=== PATIENT | female | born 1960 | race Caucasian/White ===

== ENCOUNTER 2021-09-28 21:41 | Emergency (ER) | payer BC ==
[2021-09-28 22:38] LABS: #Eosinphils 0.2 10x3/uL (0.0-0.5); #Monocytes 0.7 10x3/uL (0.0-1.1); #Neutrophils 5.7 10x3/uL (1.5-8.4); %Basophils 0.4 % (0.0-2.0); %Eosinophils 1.9 % (0.0-6.0); %Lymphocytes 29.5 % (18.0-47.0); %Monocytes 7.2 % (0.0-10.0); %Neutrophils 60.5 % (40.0-75.0); Mean Corpuscular HGB CONC 32.7 g/dL (32.0-36.0); Mean Corpuscular Hemoglobin 30.6 pg (27.0-33.0); Mean Corpuscular Volume 93.7 fl (81.6-98.3); Mean Platelet Volume 11.3 fl (7.4-10.4); Platelet Count 141 10x3/uL (150-450); RBC Distribution Width 17.2 % (11.5-14.5); Red Blood Cell (RBC) Count 5.23 10x6/uL (3.90-5.03); White Blood Cell (WBC) Count 9.4 10x3/uL (3.5-10.5)
[2021-09-28 22:49] LABS: ALT (SGPT) 23 U/L (8-55); AST (SGOT) 21 U/L (5-34); Albumin 3.9 g/dL (3.5-5.0); Alkaline Phosphatase 92 U/L (40-110); Anion Gap 14 mmol/L (10-20); BUN (Urea Nitrogen) 14 mg/dL (9.8-20.1); Bilirubin, Total 1.1 mg/dL (0.2-1.2); Calc. Creatinine Clearance 0 mL/min (70-130); Calcium 8.9 mg/dL (7.8-10.44); Carbon Dioxide 29 mmol/L (22-29); Chloride 101 mmol/L (98-107); Globulin 2.7 g/dL (2.4-3.5); Glucose 115 mg/dL (70-105); Potassium 3.8 mmol/L (3.5-5.1); Protein, Total 6.6 g/dL (6.0-8.3); Sodium 140 mmol/L (136-145)
== END 2021-09-28 23:46 | disposition home or self-care (01) ==
LOC: CSHERS 21:41
DX: R55 Syncope and collapse (principal); J44.9 Chronic obstructive pulmonary disease, unspecified; I50.9 Heart failure, unspecified; I25.2 Old myocardial infarction; I25.10 Atherosclerotic heart disease of native coronary artery without angina pectoris; E11.9 Type 2 diabetes mellitus without complications; E78.5 Hyperlipidemia, unspecified; E66.9 Obesity, unspecified; F17.210 Nicotine dependence, cigarettes, uncomplicated
CPT/HCPCS: 71045; 80053; 83880; 84484; 85025; 85652; 86140; 93005

== ENCOUNTER 2022-01-11 22:50 | Emergency (ER) | payer BC ==
[2022-01-11 23:56] LABS: #Basophils 0.1 10x3/uL (0.0-0.2); #Eosinphils 0.2 10x3/uL (0.0-0.5); #Monocytes 0.8 10x3/uL (0.0-1.1); %Basophils 0.7 % (0.0-2.0); %Eosinophils 1.7 % (0.0-6.0); %Neutrophils 66.2 % (40.0-75.0); Hemoglobin 15.8 g/dL (12.0-15.5); Mean Corpuscular HGB CONC 33.2 g/dL (32.0-36.0); Mean Corpuscular Hemoglobin 30.5 pg (27.0-33.0); Mean Corpuscular Volume 91.9 fl (81.6-98.3); Mean Platelet Volume 11.8 fl (7.4-10.4); Platelet Count 161 10x3/uL (150-450); RBC Distribution Width 15.3 % (11.5-14.5); Red Blood Cell (RBC) Count 5.18 10x6/uL (3.90-5.03); White Blood Cell (WBC) Count 10.5 10x3/uL (3.5-10.5)
[2022-01-12 01:35] LABS: ALT (SGPT) 29 U/L (8-55); AST (SGOT) 22 U/L (5-34); Albumin 3.7 g/dL (3.5-5.0); Alkaline Phosphatase 91 U/L (40-110); Anion Gap 14 mmol/L (10-20); BUN (Urea Nitrogen) 23 mg/dL (9.8-20.1); Bilirubin, Total 0.5 mg/dL (0.2-1.2); Calc. Creatinine Clearance 0 mL/min (70-130); Carbon Dioxide 27 mmol/L (22-29); Chloride 101 mmol/L (98-107); Globulin 2.5 g/dL (2.4-3.5); Glucose 159 mg/dL (70-105); Potassium 4.6 mmol/L (3.5-5.1); Protein, Total 6.2 g/dL (6.0-8.3); Sodium 137 mmol/L (136-145)
[2022-01-12 02:42] LABS: Bilirubin Neg (Negative); Blood, Urine Negative (Negative); Clarity Slightly Cloudy (Clear); Glucose, Urine (Dipstick) >=1000 mg/dL (Negative); Ketone, Urine Negative (Negative); Leukocyte Negative (Negative); Nitrite Negative (Negative); Protein, Urine (Dipstick) Negative (Neg-Trace); Specific Gravity, Urine 1.015 (1.002-1.036)
== END 2022-01-12 03:30 | disposition home or self-care (01) ==
LOC: CSHERS 22:50
DX: R53.1 Weakness (principal); I25.2 Old myocardial infarction; I25.10 Atherosclerotic heart disease of native coronary artery without angina pectoris; E11.9 Type 2 diabetes mellitus without complications; F17.210 Nicotine dependence, cigarettes, uncomplicated
CPT/HCPCS: 70450; 80053; 81003; 84484; 85025; 93005

== ENCOUNTER 2022-02-17 22:07 | Inpatient (IN) | payer BC ==
[2022-02-17] MEDS ORDERED: Naloxone HCl 0.4 mg/ml Vial ONE (22:36)
[2022-02-17 23:19] LABS: Mean Corpuscular HGB CONC 32.4 g/dL (32.0-36.0); Mean Corpuscular Hemoglobin 29.6 pg (27.0-33.0); Mean Corpuscular Volume 91.5 fl (81.6-98.3); Mean Platelet Volume 11.4 fl (7.4-10.4); Platelet Count 152 10x3/uL (150-450); RBC Distribution Width 15.9 % (11.5-14.5); Red Blood Cell (RBC) Count 5.74 10x6/uL (3.90-5.03); White Blood Cell (WBC) Count 12.8 10x3/uL (3.5-10.5)
[2022-02-17 23:33] LABS: ALT (SGPT) 29 U/L (8-55); AST (SGOT) 21 U/L (5-34); Acetaminophen Less than 10.0 mcg/mL (10.0-30.0); Alcohol Less than 10 mg/dL (Less than 10); Alkaline Phosphatase 104 U/L (40-110); Anion Gap 14 mmol/L (10-20); BUN (Urea Nitrogen) 17 mg/dL (9.8-20.1); Bilirubin, Total 0.8 mg/dL (0.2-1.2); Calc. Creatinine Clearance 0 mL/min (70-130); Calcium 9.8 mg/dL (7.8-10.44); Carbon Dioxide 28 mmol/L (22-29); Chloride 104 mmol/L (98-107); Globulin 2.8 g/dL (2.4-3.5); Glucose 158 mg/dL (70-105); Potassium 5.5 mmol/L (3.5-5.1); Protein, Total 6.8 g/dL (6.0-8.3); Salicylate Less than 8.0 mg/dL (15.0-30.0); Sodium 140 mmol/L (136-145)
[2022-02-17 23:34] LABS: MDiff Complete? YES
[2022-02-17 23:37] LABS: Band 12 % (5-11); Lymphocytes 8 % (21-51); Monocytes 4 % (0-10); Neutrophil 75 % (42-75); Reactive Lymphocytes 1 % (0-10)
[2022-02-17 23:38] LABS: Platelet Morphology Comment Appears Adequate; RBC Morphology Normal; Vacuoles SLIGHT
[2022-02-17] MEDS ORDERED: Ondansetron PF 4 MG/2 ML Vial ONE (23:39)
[2022-02-18 00:47] LABS: SARS-CoV-2 NAA Rapid Test Not Detected (NotDetected)
[2022-02-18 01:28] LABS: Bilirubin Neg (Negative); Blood, Urine 25 (Negative); Clarity Clear (Clear); Glucose, Urine (Dipstick) >=1000 mg/dL (Negative); Ketone, Urine Negative (Negative); Leukocyte 500 (Negative); Nitrite Negative (Negative); Protein, Urine (Dipstick) 15 mg/dl (Neg-Trace); Urobilinogen Normal mg/dL (Less than 2)
[2022-02-18 01:36] LABS: Amphetamine Not Detected (NotDetected); Barbiturates Screen Not Detected (NotDetected); Benzodiazepine Screen Not Detected (NotDetected); Cocaine Metabolite Screen Not Detected (NotDetected); Methadone Not Detected (NotDetected); Methamphetamine Not Detected (NotDetected); Opiate Screen Detected (NotDetected); Oxycodone Screen Not Detected (NotDetected); Phencyclidine (PCP) Not Detected (NotDetected); THC/Cannabinoid Screen Not Detected (NotDetected); Tricyclic Screen Detected (NotDetected)
[2022-02-18 01:37] LABS: Bacteria/HPF 4+ HPF (None Seen); RBC/HPF 0-3 HPF (0-3); Squamous Epithelial None Seen HPF (0-3); WBC/HPF 21-50 HPF (0-3)
[2022-02-18] MEDS ORDERED: cefTRIAXone\\ROCEPHIN 2 GM VIAL ONE (01:50)
[2022-02-18] MEDS ORDERED: Ventolin HFA Inhaler 60 PUFF INHALER INH PRN (02:53)
[2022-02-18] MEDS ORDERED: HumaLOG 300 UNITS/3 ML VIAL SC PRN (02:54)
[2022-02-18] MEDS ORDERED: Dextrose 5% in Water 1,000 ML IV PRN (02:54)
[2022-02-18] MEDS ORDERED: Lorazepam 2 MG/ML VIAL SLOW IVP PRN (02:54)
[2022-02-18] MEDS ORDERED: Dextrose 50% Abboject 50 ML SYRINGE SLOW IVP PRN (02:54)
[2022-02-18] MEDS ORDERED: hydrALAZINE 20 MG/ML VIAL SLOW IVP PRN (02:57)
[2022-02-18] MEDS ORDERED: Nicotine 14 MG PATCH TD SCH (03:00)
[2022-02-18 03:39] VITALS: BMI 44.2
[2022-02-18] MEDS: Sodium Chloride 0.9% 1,000 ML IV SCH ×2 (05:00→16:16)
[2022-02-18 05:35] LABS: #Monocytes 0.8 10x3/uL (0.0-1.1); #Neutrophils 10.8 10x3/uL (1.5-8.4); %Basophils 0.2 % (0.0-2.0); %Eosinophils 0.1 % (0.0-6.0); %Lymphocytes 9.3 % (18.0-47.0); %Monocytes 5.9 % (0.0-10.0); %Neutrophils 84.1 % (40.0-75.0); Hemoglobin 15.5 g/dL (12.0-15.5); Mean Corpuscular HGB CONC 32.8 g/dL (32.0-36.0); Mean Corpuscular Hemoglobin 29.6 pg (27.0-33.0); Mean Corpuscular Volume 90.2 fl (81.6-98.3); Mean Platelet Volume 11.6 fl (7.4-10.4); Platelet Count 142 10x3/uL (150-450); RBC Distribution Width 15.4 % (11.5-14.5); Red Blood Cell (RBC) Count 5.23 10x6/uL (3.90-5.03); White Blood Cell (WBC) Count 12.9 10x3/uL (3.5-10.5)
[2022-02-18 05:55] LABS: ALT (SGPT) 20 U/L (8-55); AST (SGOT) 16 U/L (5-34); Albumin 3.5 g/dL (3.5-5.0); Alkaline Phosphatase 90 U/L (40-110); Anion Gap 14 mmol/L (10-20); BUN (Urea Nitrogen) 17 mg/dL (9.8-20.1); Bilirubin, Total 0.5 mg/dL (0.2-1.2); Calc. Creatinine Clearance 87 mL/min (70-130); Calcium 8.8 mg/dL (7.8-10.44); Carbon Dioxide 27 mmol/L (22-29); Chloride 106 mmol/L (98-107); Globulin 2.4 g/dL (2.4-3.5); Glucose 127 mg/dL (70-105); Magnesium 2.9 mg/dL (1.6-2.6); Protein, Total 5.9 g/dL (6.0-8.3); Sodium 142 mmol/L (136-145)
[2022-02-18] MEDS ORDERED: Famotidine/PF 20 mg/2ml Vial SLOW IVP SCH (09:00)
[2022-02-18] MEDS: Heparin 5,000 UNITS/ML VIAL SC SCH ×3 (09:39→21:02)
[2022-02-18 13:19] LABS: Potassium, Urine 76.3 mmol/L; Sodium, Urine Less than 20 mmol/L (Not Available)
[2022-02-18] MEDS: Acetaminophen 325 MG TAB PO PRN (21:03)
[2022-02-18] MEDS: Atorvastatin Calcium 40 MG TAB PO SCH (21:04)
[2022-02-18] MEDS: Famotidine 20 MG TAB PO SCH (21:42)
[2022-02-19] MEDS: Sodium Chloride 0.9% 1,000 ML IV SCH ×2 (00:33→09:29)
[2022-02-19] MEDS: cefTRIAXone\\ROCEPHIN 1 GM in Sodium Chloride 0.9% 100 ML IVPB SCH (01:12)
[2022-02-19 05:37] LABS: #Eosinphils 0.1 10x3/uL (0.0-0.5); #Monocytes 0.9 10x3/uL (0.0-1.1); #Neutrophils 7.2 10x3/uL (1.5-8.4); %Basophils 0.3 % (0.0-2.0); %Eosinophils 0.9 % (0.0-6.0); %Monocytes 8.8 % (0.0-10.0); %Neutrophils 70.6 % (40.0-75.0); Hemoglobin 13.9 g/dL (12.0-15.5); Mean Corpuscular HGB CONC 32.5 g/dL (32.0-36.0); Mean Corpuscular Hemoglobin 29.8 pg (27.0-33.0); Mean Corpuscular Volume 91.6 fl (81.6-98.3); Mean Platelet Volume 11.7 fl (7.4-10.4); Platelet Count 122 10x3/uL (150-450); RBC Distribution Width 15.7 % (11.5-14.5); Red Blood Cell (RBC) Count 4.67 10x6/uL (3.90-5.03); White Blood Cell (WBC) Count 10.2 10x3/uL (3.5-10.5)
[2022-02-19 05:54] LABS: Anion Gap 12 mmol/L (10-20); BUN (Urea Nitrogen) 14 mg/dL (9.8-20.1); Calc. Creatinine Clearance 129 mL/min (70-130); Calcium 8.6 mg/dL (7.8-10.44); Carbon Dioxide 25 mmol/L (22-29); Chloride 109 mmol/L (98-107); Glucose 87 mg/dL (70-105); Potassium 4.1 mmol/L (3.5-5.1); Sodium 142 mmol/L (136-145)
[2022-02-19 06:03] LABS: Free T4 (Free Thyroxine) 0.91 ng/dL (0.70-1.48)
[2022-02-19] MEDS: Famotidine 20 MG TAB PO SCH ×2 (10:10→21:08)
[2022-02-19] MEDS: Nicotine 14 MG PATCH TD SCH (10:11)
[2022-02-19] MEDS: Acetaminophen 325 MG TAB PO PRN ×2 (10:24→21:06)
[2022-02-19] MEDS: Heparin 5,000 UNITS/ML VIAL SC SCH ×3 (10:24→21:09)
[2022-02-19] MEDS: HYDROcodone/Acetaminophen 5/325 mg Tablet PO PRN (16:21)
[2022-02-19] MEDS: Atorvastatin Calcium 40 MG TAB PO SCH (21:07)
[2022-02-20] MEDS: cefTRIAXone\\ROCEPHIN 1 GM in Sodium Chloride 0.9% 100 ML IVPB SCH (01:14)
[2022-02-20] MEDS: Nicotine 14 MG PATCH TD SCH (08:43)
[2022-02-20] MEDS: Famotidine 20 MG TAB PO SCH ×2 (08:43→19:44)
[2022-02-20] MEDS: Heparin 5,000 UNITS/ML VIAL SC SCH ×3 (08:43→21:13)
[2022-02-20] MEDS: Acetaminophen 325 MG TAB PO PRN ×2 (08:43→13:56)
[2022-02-20] MEDS ORDERED: Loratadine 10 MG TAB PO PRN (11:35)
[2022-02-20] MEDS: HYDROcodone/Acetaminophen 5/325 mg Tablet PO PRN ×2 (15:21→19:48)
[2022-02-20] MEDS: Torsemide 20 MG TAB PO SCH (19:44)
[2022-02-20] MEDS: risperiDONE 1 MG TAB PO SCH (19:46)
[2022-02-20] MEDS: Atorvastatin Calcium 40 MG TAB PO SCH (19:46)
[2022-02-21] MEDS: Acetaminophen 325 MG TAB PO PRN ×2 (00:18→22:51)
[2022-02-21] MEDS: Lorazepam 0.5 MG TAB PO PRN (00:26)
[2022-02-21] MEDS: HYDROcodone/Acetaminophen 5/325 mg Tablet PO PRN ×4 (02:08→21:43)
[2022-02-21] MEDS: cefTRIAXone\\ROCEPHIN 1 GM in Sodium Chloride 0.9% 100 ML IVPB SCH (02:10)
[2022-02-21] MEDS: Nicotine 14 MG PATCH TD SCH (09:11)
[2022-02-21] MEDS: Heparin 5,000 UNITS/ML VIAL SC SCH ×3 (09:11→22:15)
[2022-02-21] MEDS: PARoxetine 20 MG TAB PO SCH (09:12)
[2022-02-21] MEDS: risperiDONE 1 MG TAB PO SCH ×2 (09:12→21:43)
[2022-02-21] MEDS: Torsemide 20 MG TAB PO SCH ×2 (09:12→21:42)
[2022-02-21] MEDS: Famotidine 20 MG TAB PO SCH ×2 (09:14→21:43)
[2022-02-21] MEDS: Amlodipine 10 MG TAB PO SCH (11:01)
[2022-02-21] MEDS: Atorvastatin Calcium 40 MG TAB PO SCH (21:43)
[2022-02-22] MEDS: cefTRIAXone\\ROCEPHIN 1 GM in Sodium Chloride 0.9% 100 ML IVPB SCH (01:01)
[2022-02-22] MEDS: Lorazepam 0.5 MG TAB PO PRN (01:01)
[2022-02-22] MEDS: HYDROcodone/Acetaminophen 5/325 mg Tablet PO PRN ×2 (03:19→12:21)
[2022-02-22] MEDS: risperiDONE 1 MG TAB PO SCH (08:37)
[2022-02-22] MEDS: Nicotine 14 MG PATCH TD SCH (08:37)
[2022-02-22] MEDS: Amlodipine 10 MG TAB PO SCH (08:37)
[2022-02-22] MEDS: PARoxetine 20 MG TAB PO SCH (08:37)
[2022-02-22] MEDS: Heparin 5,000 UNITS/ML VIAL SC SCH ×2 (08:37→15:30)
[2022-02-22] MEDS: Famotidine 20 MG TAB PO SCH (08:37)
[2022-02-22] MEDS: Torsemide 20 MG TAB PO SCH (08:38)
[2022-02-22 12:39] VITALS: BP 153/66; TEMP 97.3
== END 2022-02-22 16:20 | disposition home or self-care (01) | DRG 71 ==
LOC: CSHERS 22:07 → CSHTELE 02-18 02:39
PROVIDERS: ADMIT Internal Medicine; ATTEND Internal Medicine
DX: G93.41 Metabolic encephalopathy (principal); N39.0 Urinary tract infection, site not specified; I13.0 Hypertensive heart and chronic kidney disease with heart failure and stage 1 through stage 4 chronic kidney disease, or unspecified chronic kidney disease; N17.9 Acute kidney failure, unspecified; J44.1 Chronic obstructive pulmonary disease with (acute) exacerbation; Z68.41 Body mass index [BMI] 40.0-44.9, adult; I50.9 Heart failure, unspecified; N18.2 Chronic kidney disease, stage 2 (mild); E11.22 Type 2 diabetes mellitus with diabetic chronic kidney disease; E78.5 Hyperlipidemia, unspecified; M54.9 Dorsalgia, unspecified; D75.1 Secondary polycythemia; R25.1 Tremor, unspecified; T40.2X5A Adverse effect of other opioids, initial encounter; E87.5 Hyperkalemia; F17.210 Nicotine dependence, cigarettes, uncomplicated; D72.829 Elevated white blood cell count, unspecified; G89.4 Chronic pain syndrome; E78.1 Pure hyperglyceridemia; I25.10 Atherosclerotic heart disease of native coronary artery without angina pectoris; E66.9 Obesity, unspecified; F31.9 Bipolar disorder, unspecified; Z20.822 Contact with and (suspected) exposure to COVID-19; Z90.49 Acquired absence of other specified parts of digestive tract; Z90.710 Acquired absence of both cervix and uterus; I25.2 Old myocardial infarction; Z98.890 Other specified postprocedural states; Z85.828 Personal history of other malignant neoplasm of skin; Z90.722 Acquired absence of ovaries, bilateral; Z90.12 Acquired absence of left breast and nipple; Z88.6 Allergy status to analgesic agent; Z88.1 Allergy status to other antibiotic agents; Z88.5 Allergy status to narcotic agent; Z88.8 Allergy status to other drugs, medicaments and biological substances; Z88.2 Allergy status to sulfonamides; Z91.09 Other allergy status, other than to drugs and biological substances; Z95.5 Presence of coronary angioplasty implant and graft; Z79.899 Other long term (current) drug therapy; Z79.01 Long term (current) use of anticoagulants; Z79.84 Long term (current) use of oral hypoglycemic drugs
CPT/HCPCS: 36415; 36416; 51702; 70450; 70551; 71045; 80048; 80053; 80306; 80307; 81003; 81015; 83605; 83735; 84133; 84300; 84439; 84443; 84481; 84484; 85025; 87077; 87086; 87186; 93005; 94640; 94760; 95819; 95957; 96365; 96375; J0696; J1644; J2310; J2405; J3490; J7050; J7620; U0002

== ENCOUNTER 2022-03-29 20:02 | Inpatient (IN) | payer OTHER, BC ==
[2022-03-29] MEDS ORDERED: Naloxone HCl 0.4 mg/ml Vial ONE ×2 (20:41→22:00)
[2022-03-29 21:09] LABS: #Basophils 0.1 10x3/uL (0.0-0.2); #Eosinphils 0.2 10x3/uL (0.0-0.5); #Monocytes 0.9 10x3/uL (0.0-1.1); #Neutrophils 6.7 10x3/uL (1.5-8.4); %Basophils 0.5 % (0.0-2.0); %Eosinophils 1.6 % (0.0-6.0); %Lymphocytes 22.9 % (18.0-47.0); %Neutrophils 65.3 % (40.0-75.0); Hemoglobin 14.6 g/dL (12.0-15.5); Mean Corpuscular HGB CONC 33.3 g/dL (32.0-36.0); Mean Corpuscular Hemoglobin 30.3 pg (27.0-33.0); Mean Corpuscular Volume 91.1 fl (81.6-98.3); Mean Platelet Volume 11.4 fl (7.4-10.4); Red Blood Cell (RBC) Count 4.82 10x6/uL (3.90-5.03); White Blood Cell (WBC) Count 10.3 10x3/uL (3.5-10.5)
[2022-03-29 21:10] LABS: Platelet Count 135 10x3/uL (150-450)
[2022-03-29 21:23] LABS: Acetaminophen Less than 10.0 mcg/mL (10.0-30.0); Alcohol Less than 10 mg/dL (Less than 10); Salicylate Less than 8.0 mg/dL (15.0-30.0)
[2022-03-29 21:25] LABS: ALT (SGPT) 25 U/L (8-55); AST (SGOT) 19 U/L (5-34); Albumin 3.6 g/dL (3.5-5.0); Alkaline Phosphatase 88 U/L (40-110); Anion Gap 10 mmol/L (10-20); BUN (Urea Nitrogen) 25 mg/dL (9.8-20.1); Bilirubin, Total 1.1 mg/dL (0.2-1.2); CK (CPK) 45 U/L (29-168); Calc. Creatinine Clearance 0 mL/min (70-130); Calcium 8.7 mg/dL (7.8-10.44); Carbon Dioxide 26 mmol/L (22-29); Chloride 104 mmol/L (98-107); Estimated GFR 30; Globulin 2.6 g/dL (2.4-3.5); Glucose 124 mg/dL (70-105); Magnesium 2.2 mg/dL (1.6-2.6); Potassium 3.7 mmol/L (3.5-5.1); Protein, Total 6.2 g/dL (6.0-8.3); Sodium 136 mmol/L (136-145)
[2022-03-29 21:40] LABS: Bilirubin Neg (Negative); Blood, Urine Negative (Negative); Clarity Clear (Clear); Glucose, Urine (Dipstick) >=1000 mg/dL (Negative); Ketone, Urine Negative (Negative); Leukocyte Negative (Negative); Nitrite Negative (Negative); Protein, Urine (Dipstick) Negative (Neg-Trace); Urobilinogen Normal mg/dL (Less than 2)
[2022-03-29 22:01] LABS: Amphetamine Not Detected (NotDetected); Barbiturates Screen Not Detected (NotDetected); Benzodiazepine Screen Not Detected (NotDetected); Cocaine Metabolite Screen Not Detected (NotDetected); Methadone Not Detected (NotDetected); Methamphetamine Not Detected (NotDetected); Opiate Screen Detected (NotDetected); Oxycodone Screen Not Detected (NotDetected); Phencyclidine (PCP) Not Detected (NotDetected); THC/Cannabinoid Screen Not Detected (NotDetected); Tricyclic Screen Detected (NotDetected)
[2022-03-30] MEDS ORDERED: Ondansetron PF 4 MG/2 ML Vial IVP PRN (00:56)
[2022-03-30] MEDS ORDERED: Calcium Carbonate 500 MG ChewTAB PO PRN (00:56)
[2022-03-30] MEDS ORDERED: Acetaminophen 325 MG TAB PO PRN (00:56)
[2022-03-30] MEDS ORDERED: Dextrose 50% Abboject 50 ML SYRINGE SLOW IVP PRN (00:56)
[2022-03-30] MEDS ORDERED: Dextrose 5% in Water 1,000 ML IV PRN (00:56)
[2022-03-30] MEDS ORDERED: Senokot S 8.6-50 MG TAB PO PRN (00:56)
[2022-03-30 01:02] LABS: Actual Bicarbonate (HCO3v) 24 mEq/L (22-28); Base Excess -4.5 mEq/L (-2.0 to +3.0); Calcium, Ionized (venous) 1.07 mmol/L (1.16-1.32); Chloride (VBG) 107 mmol/L (98-106); Critical Notified By: CP.PH; Hemoglobin (Hb) 15.6 g/dL (11.7-16.0); Potassium (VBG) 4.12 mmol/L (3.70-5.30); Puncture Site Other Site; RapidComm Collect By LAB.YY; Sodium 139.3 mmol/L (133-146); pH (venous) 7.23 (7.32-7.43)
[2022-03-30] MEDS ORDERED: Lactated Ringer's 500 ML IV SCH (01:15)
[2022-03-30 02:15] VITALS: BMI 43.6
[2022-03-30 03:21] LABS: SARS-CoV-2 NAA Rapid Test Not Detected (NotDetected)
[2022-03-30 04:52] LABS: Anion Gap 11 mmol/L (10-20); BUN (Urea Nitrogen) 23 mg/dL (9.8-20.1); Calc. Creatinine Clearance 66 mL/min (70-130); Calcium 8.7 mg/dL (7.8-10.44); Carbon Dioxide 24 mmol/L (22-29); Chloride 108 mmol/L (98-107); Estimated GFR 37; Glucose 136 mg/dL (70-105); Potassium 4.2 mmol/L (3.5-5.1); Sodium 139 mmol/L (136-145)
[2022-03-30] MEDS: Mometasone/Formoterol 200/5 60 PUFF INH SCH ×2 (09:00→19:00)
[2022-03-30] MEDS: Cholecalciferol 1,000 UNITS (25 MCG) TAB PO SCH (09:15)
[2022-03-30] MEDS: Clopidogrel Bisulfate 75 MG TAB PO SCH (09:15)
[2022-03-30] MEDS: Famotidine 20 MG TAB PO SCH (09:15)
[2022-03-30] MEDS: Icosapent Ethyl 1 GM CAPSULE PO SCH ×2 (09:16→18:24)
[2022-03-30] MEDS: Empagliflozin 25 MG TAB PO SCH (09:16)
[2022-03-30] MEDS: Enoxaparin Sodium 40 MG/0.4 ML SYRINGE SC SCH (09:16)
[2022-03-30] MEDS: Insulin Regular 300 UNITS/3 ML VIAL SC PRN (13:32)
[2022-03-31] MEDS: Mometasone/Formoterol 200/5 60 PUFF INH SCH ×2 (07:00→19:35)
[2022-03-31] MEDS: Famotidine 20 MG TAB PO SCH (09:09)
[2022-03-31] MEDS: Enoxaparin Sodium 40 MG/0.4 ML SYRINGE SC SCH (09:09)
[2022-03-31] MEDS: Cholecalciferol 1,000 UNITS (25 MCG) TAB PO SCH (09:09)
[2022-03-31] MEDS: Empagliflozin 25 MG TAB PO SCH (09:09)
[2022-03-31] MEDS: Clopidogrel Bisulfate 75 MG TAB PO SCH (09:10)
[2022-03-31] MEDS: Icosapent Ethyl 1 GM CAPSULE PO SCH ×2 (09:10→17:28)
[2022-03-31 14:35] LABS: Anion Gap 13 mmol/L (10-20); BUN (Urea Nitrogen) 13 mg/dL (9.8-20.1); Calc. Creatinine Clearance 99 mL/min (70-130); Calcium 9.1 mg/dL (7.8-10.44); Carbon Dioxide 20 mmol/L (22-29); Chloride 110 mmol/L (98-107); Estimated GFR 59; Glucose 214 mg/dL (70-105); Potassium 3.2 mmol/L (3.5-5.1); Sodium 140 mmol/L (136-145)
[2022-03-31] MEDS ORDERED: Potassium Chloride 20 MEQ TAB PO SCH (15:30)
[2022-03-31] MEDS: Pregabalin 25 MG CAP PO SCH ×2 (15:42→21:54)
[2022-03-31] MEDS: Insulin Regular 300 UNITS/3 ML VIAL SC PRN (17:27)
[2022-03-31] MEDS ORDERED: methylPREDNISolone Sod Succ 40 MG VIAL IVP SCH (18:00)
[2022-03-31] MEDS ORDERED: Loratadine 10 MG TAB PO SCH (18:00)
[2022-03-31] MEDS ORDERED: Amitriptyline HCl 25 MG TAB PO SCH (21:00)
[2022-03-31] MEDS: Torsemide 20 MG TAB PO SCH (21:54)
[2022-03-31] MEDS: Metoprolol Tartrate 25 MG TAB PO SCH (21:55)
[2022-03-31] MEDS: Potassium Chloride 20 MEQ TAB PO SCH (21:55)
[2022-04-01 05:14] LABS: Anion Gap 14 mmol/L (10-20); BUN (Urea Nitrogen) 11 mg/dL (9.8-20.1); Calc. Creatinine Clearance 108 mL/min (70-130); Calcium 8.9 mg/dL (7.8-10.44); Carbon Dioxide 22 mmol/L (22-29); Chloride 111 mmol/L (98-107); Estimated GFR 66; Glucose 124 mg/dL (70-105); Potassium 3.5 mmol/L (3.5-5.1); Sodium 143 mmol/L (136-145)
[2022-04-01] MEDS: Mometasone/Formoterol 200/5 60 PUFF INH SCH (07:17)
[2022-04-01] MEDS: Enoxaparin Sodium 40 MG/0.4 ML SYRINGE SC SCH (08:33)
[2022-04-01] MEDS: Cholecalciferol 1,000 UNITS (25 MCG) TAB PO SCH (08:34)
[2022-04-01] MEDS: Clopidogrel Bisulfate 75 MG TAB PO SCH (08:34)
[2022-04-01] MEDS: Potassium Chloride 20 MEQ TAB PO SCH (08:34)
[2022-04-01] MEDS: Pregabalin 25 MG CAP PO SCH (08:34)
[2022-04-01] MEDS: Torsemide 20 MG TAB PO SCH (08:35)
[2022-04-01] MEDS: Famotidine 20 MG TAB PO SCH (08:35)
[2022-04-01] MEDS: Metoprolol Tartrate 25 MG TAB PO SCH (08:35)
[2022-04-01] MEDS ORDERED: PARoxetine 20 MG TAB PO SCH (09:00)
[2022-04-01] MEDS ORDERED: Lisinopril 2.5 MG TAB PO SCH (09:00)
[2022-04-01] MEDS: Icosapent Ethyl 1 GM CAPSULE PO SCH (10:12)
[2022-04-01] MEDS: Empagliflozin 25 MG TAB PO SCH (10:12)
[2022-04-01 12:22] VITALS: BP 152/72; TEMP 97
[2022-04-02 11:43] LABS: Campy jejuni + coli by PCR Negative (Negative); STEC Shiga Toxin 1+2 Negative (Negative); Salmonella spp. by PCR Negative (Negative); Shigella spp + EIEC by PCR Negative (Negative)
== END 2022-04-01 13:10 | disposition home or self-care (01) | DRG 917 ==
LOC: CSHERS 20:02 → CSHTELE 03-30 01:48 → OBSVTOIN 03-30 17:31
PROVIDERS: ADMIT Student in an Organized Health Care Education/Training Program; ATTEND Internal Medicine
PROC: 5A09357 Assistance with Respiratory Ventilation, Less than 24 Consecutive Hours, Continuous Positive Airway Pressure (ICD-10-PCS; principal; 2022-03-30)
DX: T40.2X1A Poisoning by other opioids, accidental (unintentional), initial encounter (principal); G92.8 Other toxic encephalopathy; N17.9 Acute kidney failure, unspecified; I50.32 Chronic diastolic (congestive) heart failure; K52.1 Toxic gastroenteritis and colitis; Z68.41 Body mass index [BMI] 40.0-44.9, adult; I13.0 Hypertensive heart and chronic kidney disease with heart failure and stage 1 through stage 4 chronic kidney disease, or unspecified chronic kidney disease; E66.01 Morbid (severe) obesity due to excess calories; E78.5 Hyperlipidemia, unspecified; I25.10 Atherosclerotic heart disease of native coronary artery without angina pectoris; J44.9 Chronic obstructive pulmonary disease, unspecified; G47.33 Obstructive sleep apnea (adult) (pediatric); F31.9 Bipolar disorder, unspecified; E11.22 Type 2 diabetes mellitus with diabetic chronic kidney disease; N18.2 Chronic kidney disease, stage 2 (mild); G89.29 Other chronic pain; F17.210 Nicotine dependence, cigarettes, uncomplicated; E11.40 Type 2 diabetes mellitus with diabetic neuropathy, unspecified; Z20.822 Contact with and (suspected) exposure to COVID-19; I95.9 Hypotension, unspecified; Z90.49 Acquired absence of other specified parts of digestive tract; Z90.710 Acquired absence of both cervix and uterus; Z79.899 Other long term (current) drug therapy; Z88.8 Allergy status to other drugs, medicaments and biological substances; Z88.1 Allergy status to other antibiotic agents; Z88.2 Allergy status to sulfonamides; Z85.3 Personal history of malignant neoplasm of breast; Y92.89 Other specified places as the place of occurrence of the external cause; Z88.5 Allergy status to narcotic agent; Z79.51 Long term (current) use of inhaled steroids; Z79.4 Long term (current) use of insulin; Z98.890 Other specified postprocedural states
CPT/HCPCS: 36415; 36416; 70450; 71045; 80048; 80053; 80306; 80307; 81003; 82140; 82550; 82805; 83630; 83735; 84443; 84484; 85025; 87505; 93005; 94660; 94760; 96372; G0378; J1650; J1815; J2310; J7120; U0002

== ENCOUNTER 2023-05-26 15:58 | Emergency (ER) | payer BC ==
[2023-05-26 16:54] LABS: #Eosinphils 0.2 10x3/uL (0.0-0.5); #Monocytes 0.7 10x3/uL (0.0-1.1); #Neutrophils 7.9 10x3/uL (1.5-8.4); %Basophils 0.3 % (0.0-2.0); %Eosinophils 1.9 % (0.0-6.0); %Lymphocytes 13.1 % (18.0-47.0); %Monocytes 6.6 % (0.0-10.0); %Neutrophils 76.7 % (40.0-75.0); Hematocrit 28.1 % (34.9-44.5); Hemoglobin 9.3 g/dL (12.0-15.5); Mean Corpuscular HGB CONC 33.1 g/dL (32.0-36.0); Mean Corpuscular Hemoglobin 34.6 pg (27.0-33.0); Mean Corpuscular Volume 104.5 fl (81.6-98.3); Mean Platelet Volume 12.3 fl (7.4-10.4); Platelet Count 63 10x3/uL (150-450); RBC Distribution Width 25.8 % (11.5-14.5); Red Blood Cell (RBC) Count 2.69 10x6/uL (3.90-5.03); White Blood Cell (WBC) Count 10.2 10x3/uL (3.5-10.5)
[2023-05-26 17:11] LABS: Bilirubin Neg (Negative); Blood, Urine Negative (Negative); Clarity Clear (Clear); Glucose, Urine (Dipstick) >=1000 mg/dL (Negative); Ketone, Urine Negative (Negative); Leukocyte Negative (Negative); Nitrite Negative (Negative); Protein, Urine (Dipstick) Negative (Neg-Trace); Urobilinogen Normal mg/dL (Less than 2)
[2023-05-26 17:11] LABS: ALT (SGPT) 19 U/L (8-55); AST (SGOT) 16 U/L (5-34); Albumin 3.9 g/dL (3.5-5.0); Alkaline Phosphatase 165 U/L (40-110); Anion Gap 15 mmol/L (10-20); BUN (Urea Nitrogen) 26 mg/dL (9.8-20.1); Bilirubin, Total 0.5 mg/dL (0.2-1.2); Calc. Creatinine Clearance 0 mL/min (70-130); Calcium 8.3 mg/dL (7.8-10.44); Carbon Dioxide 26 mmol/L (22-29); Chloride 101 mmol/L (98-107); Estimated GFR 52; Globulin 2.8 g/dL (2.4-3.5); Glucose 255 mg/dL (70-105); Lipase 38 U/L (8-78); Potassium 4.6 mmol/L (3.5-5.1); Protein, Total 6.7 g/dL (6.0-8.3); Sodium 137 mmol/L (136-145)
[2023-05-26 17:17] LABS: Troponin I Less than 0.010 ng/mL (< 0.028)
[2023-05-26 17:57] LABS: Bacteria/HPF Rare-Few HPF (None Seen); CAUTI Indications for Culture Alt mental st,lethar; RBC/HPF 0-3 HPF (0-3); Squamous Epithelial 0-3 HPF (0-3); WBC/HPF 0-3 HPF (0-3)
[2023-05-26 17:59] LABS: Urine Culture Reflex No No
[2023-05-26] MEDS ORDERED: levETIRAcetam 500 MG/5 ML VIAL ONE (18:03)
[2023-05-26] MEDS ORDERED: Acetaminophen 500 MG TAB ONE (18:13)
== END 2023-05-26 18:20 | disposition home or self-care (01) ==
LOC: CSHERS 15:58
DX: R56.9 Unspecified convulsions (principal); E11.9 Type 2 diabetes mellitus without complications; I25.10 Atherosclerotic heart disease of native coronary artery without angina pectoris; K21.9 Gastro-esophageal reflux disease without esophagitis; I10 Essential (primary) hypertension; F17.210 Nicotine dependence, cigarettes, uncomplicated; Z79.4 Long term (current) use of insulin
CPT/HCPCS: 70450; 71045; 80053; 81001; 83605; 83690; 84484; 85025; 93005; J1953

== ENCOUNTER 2023-10-27 18:26 | Inpatient (IN) | payer BC ==
[~2023-10-27 18:26] MED LIST: Iopamidol 370 76% 100 ML VIAL ONE
[2023-10-27] MEDS ORDERED: methylPREDNISolone Sod Succ/PF 125 MG/2 ML VIAL ONE (18:50)
[2023-10-27] MEDS ORDERED: Albuterol 2.5 MG (3 mL) NEB ONE (19:01)
[2023-10-27 19:09] LABS: #Monocytes 0.8 10x3/uL (0.0-1.1); %Basophils 0.1 % (0.0-2.0); %Eosinophils 0.1 % (0.0-6.0); %Lymphocytes 6.3 % (18.0-47.0); %Monocytes 5.5 % (0.0-10.0); %Neutrophils 87.7 % (40.0-75.0); Hematocrit 45.6 % (34.9-44.5); Hemoglobin 14.8 g/dL (12.0-15.5); Mean Corpuscular HGB CONC 32.5 g/dL (32.0-36.0); Mean Corpuscular Hemoglobin 31.8 pg (27.0-33.0); Mean Corpuscular Volume 97.9 fl (81.6-98.3); Platelet Count 64 10x3/uL (150-450); RBC Distribution Width 16.4 % (11.5-14.5); Red Blood Cell (RBC) Count 4.66 10x6/uL (3.90-5.03); White Blood Cell (WBC) Count 14.8 10x3/uL (3.5-10.5)
[2023-10-27 19:10] LABS: ALT (SGPT) 14 U/L (8-55); AST (SGOT) 14 U/L (5-34); Albumin 3.9 g/dL (3.5-5.0); Alkaline Phosphatase 102 U/L (40-110); Anion Gap 15 mmol/L (10-20); BUN (Urea Nitrogen) 17 mg/dL (9.8-20.1); Bilirubin, Total 0.9 mg/dL (0.2-1.2); Calc. Creatinine Clearance 0 mL/min (70-130); Calcium 8.6 mg/dL (7.8-10.44); Carbon Dioxide 26 mmol/L (22-29); Chloride 101 mmol/L (98-107); Estimated GFR 65; Globulin 2.4 g/dL (2.4-3.5); Glucose 162 mg/dL (70-105); Potassium 3.7 mmol/L (3.5-5.1); Protein, Total 6.3 g/dL (6.0-8.3); Sodium 138 mmol/L (136-145)
[2023-10-27 19:15] LABS: Troponin I 0.024 ng/mL (< 0.028)
[2023-10-27 19:16] LABS: Actual Bicarbonate (HCO3a) 29.2 mEq/L (22-28); Analyzer IN Cardio CS ER; Base Excess (BEa) 3.4 mEq/L (-2.0 to +3.0); CO2 Tension 48.2 mmHg (35.0-45.0); Calcium, Ionized (arterial) 1.12 mmol/L (1.12-1.30); Carboxyhemoglobin (COHb) 9.3 gm% (0.0-3.0); Hematocrit-ABG 45 % (36.0-47.0); Hemoglobin (Hb) 15.4 g/dL (12.0-16.0); O2 Tension (PaO2), arterial 61.3 mmHg (> 80.0); Potassium - ABG Lab 3.47 mmol/L (3.70-5.30); Puncture Site RBA
[2023-10-27 20:59] LABS: Influenza A by NAA Not Detected (NotDetected); Influenza B by NAA Not Detected (NotDetected); SARS-CoV-2 NAA Rapid Test Not Detected (NotDetected)
[2023-10-27 21:42] LABS: Anisocytosis SLIGHT = 6-15 cells (100X) (0-5/hpf); Hypochromia SLIGHT = 6-15 cells (100X) (0-5/hpf); Poikilocytosis SLIGHT = 6-15 cells (100X) (0-5/hpf); Polychromasia SLIGHT = 2-3 cells (100X) (0-2/hpf)
[2023-10-27 21:43] LABS: Ovalocytes SLIGHT = 2-5 cells (100X) (0-1/hpf); Tear Drops SLIGHT = 2-5 cells (100X) (0-1/hpf)
[2023-10-27 21:44] LABS: Platelet Adequacy Comment Appears Decreased
[2023-10-27] MEDS ORDERED: Ipratropium/Albuterol 3 ML NEB ONE (22:07)
[2023-10-28] MEDS ORDERED: Calcium Carbonate 500 MG ChewTAB PO PRN (00:27)
[2023-10-28] MEDS ORDERED: Glucagon 1 MG/ML KIT IM PRN (00:36)
[2023-10-28] MEDS ORDERED: Dextrose 50% Abboject 50 ML SYRINGE SLOW IVP PRN (00:36)
[2023-10-28] MEDS ORDERED: Dextrose 5% in Water 1,000 ML IV PRN (00:36)
[2023-10-28] MEDS ORDERED: NS 0.9% w/ 20 MEQ KCL 1,000 ML ONE (01:42)
[2023-10-28] MEDS: NS 0.9% w/ 20 MEQ KCL 1,000 ML/1,000 ML BAG IV SCH (01:53)
[2023-10-28] MEDS ORDERED: Ondansetron ODT 4 MG TAB ONE (02:02)
[2023-10-28] MEDS: HYDROmorphone 2 MG TAB PO PRN (02:10)
[2023-10-28] MEDS: Ondansetron ODT 4 MG TAB PO PRN (02:10)
[2023-10-28 02:16] VITALS: BMI 42.2
[2023-10-28] MEDS: Nicotine 21 MG PATCH TD SCH (02:23)
[2023-10-28 04:10] LABS: Anion Gap 14 mmol/L (10-20); BUN (Urea Nitrogen) 20 mg/dL (9.8-20.1); Calc. Creatinine Clearance 87 mL/min (70-130); Carbon Dioxide 26 mmol/L (22-29); Chloride 101 mmol/L (98-107); Estimated GFR 59; Glucose 320 mg/dL (70-105); Sodium 137 mmol/L (136-145)
[2023-10-28 04:22] LABS: #Eosinphils 0.3 10x3/uL (0.0-0.5); #Monocytes 0.1 10x3/uL (0.0-1.1); #Neutrophils 11.7 10x3/uL (1.5-8.4); %Basophils 0.2 % (0.0-2.0); %Eosinophils 2.2 % (0.0-6.0); %Lymphocytes 2.9 % (18.0-47.0); %Monocytes 1.1 % (0.0-10.0); %Neutrophils 93.2 % (40.0-75.0); Hemoglobin 14.1 g/dL (12.0-15.5); Mean Corpuscular HGB CONC 33.6 g/dL (32.0-36.0); Mean Corpuscular Hemoglobin 32.3 pg (27.0-33.0); Mean Corpuscular Volume 96.3 fl (81.6-98.3); Platelet Count 61 10x3/uL (150-450); RBC Distribution Width 16.3 % (11.5-14.5); Red Blood Cell (RBC) Count 4.36 10x6/uL (3.90-5.03); White Blood Cell (WBC) Count 12.6 10x3/uL (3.5-10.5)
[2023-10-28] MEDS ORDERED: predniSONE 20 MG TAB ONE (07:39)
[2023-10-28] MEDS: Arformoterol 15 MCG/2 ML NEB NEB SCH (07:45)
[2023-10-28] MEDS: Budesonide 0.5 MG/2 ML NEB INH SCH (07:45)
[2023-10-28] MEDS: Ipratropium/Albuterol 3 ML NEB NEB SCH (07:54)
[2023-10-28] MEDS: Lantus 1000 UNITS/10 ML VIAL SC SCH (08:06)
[2023-10-28] MEDS: predniSONE 20 MG TAB PO SCH (08:06)
[2023-10-28] MEDS: Ranolazine ER 500 MG TAB PO SCH (08:07)
[2023-10-28] MEDS: levETIRAcetam 500 mg/5 ml Oral Solution PO SCH (08:07)
[2023-10-28] MEDS: PARoxetine 20 MG TAB PO SCH (08:07)
[2023-10-28] MEDS: HumaLOG 300 UNITS/3 ML VIAL SC PRN (08:07)
[2023-10-28] MEDS: Isosorbide Mononitrate 60 MG ER.TAB PO SCH (08:07)
[2023-10-28] MEDS ORDERED: Enoxaparin 40 MG (0.4 mL) SYRINGE SC SCH (09:00)
[2023-10-28] MEDS ORDERED: Ipratropium/Albuterol 3 ML NEB ONE ×2 (10:37→14:43)
[2023-10-28] MEDS ORDERED: cefTRIAXone (ROCEPHIN) 1 GM VIAL ONE (11:46)
[2023-10-28] MEDS: cefTRIAXone\\ROCEPHIN 1 GM in Sodium Chloride 0.9% 100 ML IVPB SCH (11:57)
[2023-10-28] MEDS: Enoxaparin 40 MG (0.4 mL) SYRINGE SC SCH (19:45)
[2023-10-28] MEDS: Atorvastatin Calcium 40 MG TAB PO SCH (20:52)
[2023-10-28] MEDS: methylPREDNISolone Sod Succ 40 MG VIAL IVP SCH (20:53)
[2023-10-28 23:27] LABS: Amphetamine Not Detected (NotDetected); Barbiturates Screen Not Detected (NotDetected); Benzodiazepine Screen Not Detected (NotDetected); Cocaine Metabolite Screen Not Detected (NotDetected); Methadone Not Detected (NotDetected); Methamphetamine Not Detected (NotDetected); Opiate Screen Detected (NotDetected); Oxycodone Screen Not Detected (NotDetected); Phencyclidine (PCP) Not Detected (NotDetected); THC/Cannabinoid Screen Not Detected (NotDetected); Tricyclic Screen Not Detected (NotDetected)
[2023-10-29 12:50] LABS: Actual Bicarbonate (HCO3v) 31.1 mEq/L (22-28); Analyzer IN Cardio CS ICU; Calcium, Ionized (venous) 1.16 mmol/L (1.16-1.32); Chloride (VBG) 108 mmol/L (98-106); Hematocrit-VBG 39 % (36.0-47.0); Hemoglobin (Hb) 13.1 g/dL (11.7-16.0); Potassium (VBG) 4.21 mmol/L (3.70-5.30); Puncture Site Other Site; Sodium 142 mmol/L (133-146); pH (venous) 7.394 (7.32-7.43)
[2023-10-30 05:19] LABS: Anion Gap 14 mmol/L (10-20); BUN (Urea Nitrogen) 25 mg/dL (9.8-20.1); Calc. Creatinine Clearance 117 mL/min (70-130); Calcium 9.2 mg/dL (7.8-10.44); Carbon Dioxide 26 mmol/L (22-29); Chloride 106 mmol/L (98-107); Estimated GFR 86; Glucose 212 mg/dL (70-105); Potassium 4.2 mmol/L (3.5-5.1); Sodium 142 mmol/L (136-145)
[2023-10-30 07:17] LABS: #Monocytes 0.4 10x3/uL (0.0-1.1); #Neutrophils 7.6 10x3/uL (1.5-8.4); %Basophils 0.1 % (0.0-2.0); %Lymphocytes 9.4 % (18.0-47.0); %Neutrophils 85.9 % (40.0-75.0); Hematocrit 40.4 % (34.9-44.5); Hemoglobin 13.2 g/dL (12.0-15.5); Mean Corpuscular HGB CONC 32.7 g/dL (32.0-36.0); Mean Corpuscular Hemoglobin 31.5 pg (27.0-33.0); Mean Corpuscular Volume 96.4 fl (81.6-98.3); Mean Platelet Volume 12.3 fl (7.4-10.4); Platelet Count 68 10x3/uL (150-450); RBC Distribution Width 15.5 % (11.5-14.5); Red Blood Cell (RBC) Count 4.19 10x6/uL (3.90-5.03); White Blood Cell (WBC) Count 8.8 10x3/uL (3.5-10.5)
[2023-10-30] MEDS: Furosemide 40 MG (4 mL) VIAL SLOW IVP SCH (12:30)
[2023-10-30] MEDS: Senokot S 8.6-50 MG TAB PO PRN (21:13)
[2023-10-31] MEDS: Acetaminophen 325 MG TAB PO PRN
[2023-10-31 05:43] LABS: #Monocytes 0.6 10x3/uL (0.0-1.1); #Neutrophils 5.6 10x3/uL (1.5-8.4); %Basophils 0.1 % (0.0-2.0); %Lymphocytes 11.8 % (18.0-47.0); %Monocytes 8.3 % (0.0-10.0); Hematocrit 41.4 % (34.9-44.5); Hemoglobin 13.5 g/dL (12.0-15.5); Mean Corpuscular HGB CONC 32.6 g/dL (32.0-36.0); Mean Corpuscular Hemoglobin 31.1 pg (27.0-33.0); Mean Corpuscular Volume 95.4 fl (81.6-98.3); Mean Platelet Volume 11.9 fl (7.4-10.4); Platelet Count 72 10x3/uL (150-450); RBC Distribution Width 15.2 % (11.5-14.5); Red Blood Cell (RBC) Count 4.34 10x6/uL (3.90-5.03); White Blood Cell (WBC) Count 7.1 10x3/uL (3.5-10.5)
[2023-10-31 05:54] LABS: Platelet Adequacy Comment Appears Decreased
[2023-10-31 05:59] LABS: RBC Morph Comment Within Normal Limits
[2023-10-31 06:00] LABS: Anion Gap 17 mmol/L (10-20); BUN (Urea Nitrogen) 25 mg/dL (9.8-20.1); Calc. Creatinine Clearance 101 mL/min (70-130); Carbon Dioxide 23 mmol/L (22-29); Chloride 103 mmol/L (98-107); Estimated GFR 71; Glucose 271 mg/dL (70-105); Potassium 3.9 mmol/L (3.5-5.1); Sodium 139 mmol/L (136-145)
[2023-10-31] MEDS ORDERED: levETIRAcetam 500 MG TAB PO SCH (09:00)
[2023-10-31] MEDS: Isosorbide Mononitrate 60 MG ER.TAB PO SCH (09:21)
[2023-10-31] MEDS: levETIRAcetam 500 mg/5 ml Oral Solution PO SCH (09:22)
[2023-10-31] MEDS: Ranolazine ER 500 MG TAB PO SCH (09:25)
[2023-10-31] MEDS: methylPREDNISolone Sod Succ 40 MG VIAL IVP SCH (09:26)
[2023-10-31] MEDS: Furosemide 40 MG (4 mL) VIAL SLOW IVP SCH (09:29)
[2023-10-31] MEDS: Pregabalin 75 MG CAP PO SCH (09:31)
[2023-10-31 11:36] VITALS: BP 167/80; TEMP 96.7
[2023-10-31] MEDS: Ondansetron PF 4 MG/2 ML Vial IVP PRN (13:18)
== END 2023-10-31 14:05 | disposition home or self-care (01) | DRG 189 ==
LOC: CSHERS 18:26 → CSHERHOLD 10-28 00:21 → CSHTELE 10-28 17:50
PROVIDERS: ADMIT Family Medicine; ATTEND Internal Medicine
PROC: 4A033R1 Measurement of Arterial Saturation, Peripheral, Percutaneous Approach (ICD-10-PCS; principal; 2023-10-27)
DX: J96.01 Acute respiratory failure with hypoxia (principal); G93.41 Metabolic encephalopathy; J44.1 Chronic obstructive pulmonary disease with (acute) exacerbation; C34.90 Malignant neoplasm of unspecified part of unspecified bronchus or lung; C79.31 Secondary malignant neoplasm of brain; C79.51 Secondary malignant neoplasm of bone; Z91.048 Other nonmedicinal substance allergy status; Z88.5 Allergy status to narcotic agent; Z88.2 Allergy status to sulfonamides; Z88.1 Allergy status to other antibiotic agents; Z79.899 Other long term (current) drug therapy; I25.2 Old myocardial infarction; I25.10 Atherosclerotic heart disease of native coronary artery without angina pectoris; E11.40 Type 2 diabetes mellitus with diabetic neuropathy, unspecified; K21.9 Gastro-esophageal reflux disease without esophagitis; Z90.49 Acquired absence of other specified parts of digestive tract; Z90.710 Acquired absence of both cervix and uterus; F32.A Depression, unspecified; F17.210 Nicotine dependence, cigarettes, uncomplicated; I11.0 Hypertensive heart disease with heart failure; I50.9 Heart failure, unspecified; Z79.4 Long term (current) use of insulin; Z11.52 Encounter for screening for COVID-19
CPT/HCPCS: 36415; 36416; 36600; 71275; 80048; 80053; 80306; 82805; 83735; 83880; 84484; 85025; 94640; 94760; 94762; 96374; J0696; J1815; J1940; J2405; J2920; J2930; J3480; J3490; J7512; J7611; J7620; J7626; Q0162; Q9967

== ENCOUNTER 2023-11-02 20:16 | Inpatient (IN) | payer BC ==
[2023-11-02] MEDS ORDERED: methylPREDNISolone Sod Succ/PF 125 MG/2 ML VIAL ONE (20:31)
[2023-11-02] MEDS ORDERED: Albuterol 2.5 MG (0.5 mL) NEB ONE (20:33)
[2023-11-02 21:13] LABS: Influenza A by NAA DETECTED (NotDetected); Influenza B by NAA Not Detected (NotDetected); SARS-CoV-2 NAA Rapid Test Not Detected (NotDetected)
[2023-11-02] MEDS ORDERED: Acetaminophen 500 MG TAB ONE (21:16)
[2023-11-02 21:34] LABS: ALT (SGPT) 19 U/L (8-55); AST (SGOT) 17 U/L (5-34); Albumin 3.8 g/dL (3.5-5.0); Alkaline Phosphatase 73 U/L (40-110); Anion Gap 17 mmol/L (10-20); BUN (Urea Nitrogen) 21 mg/dL (9.8-20.1); Bilirubin, Total 0.7 mg/dL (0.2-1.2); Calc. Creatinine Clearance 0 mL/min (70-130); Calcium 8.5 mg/dL (7.8-10.44); Carbon Dioxide 25 mmol/L (22-29); Chloride 101 mmol/L (98-107); Estimated GFR 59; Globulin 2.9 g/dL (2.4-3.5); Glucose 166 mg/dL (70-105); Potassium 3.7 mmol/L (3.5-5.1); Protein, Total 6.7 g/dL (6.0-8.3); Sodium 139 mmol/L (136-145)
[2023-11-02 21:43] LABS: #Monocytes 0.7 10x3/uL (0.0-1.1); #Neutrophils 7.5 10x3/uL (1.5-8.4); %Basophils 0.3 % (0.0-2.0); %Eosinophils 0.1 % (0.0-6.0); %Lymphocytes 6.5 % (18.0-47.0); %Monocytes 7.6 % (0.0-10.0); Hematocrit 47.5 % (34.9-44.5); Hemoglobin 15.6 g/dL (12.0-15.5); Mean Corpuscular HGB CONC 32.8 g/dL (32.0-36.0); Mean Corpuscular Hemoglobin 31.2 pg (27.0-33.0); Platelet Adequacy Comment Appears Adequate; Platelet Count 57 10x3/uL (150-450); RBC Distribution Width 15.9 % (11.5-14.5); White Blood Cell (WBC) Count 8.9 10x3/uL (3.5-10.5)
[2023-11-02 21:44] LABS: RBC Morph Comment Within Normal Limits
[2023-11-02 22:02] LABS: Actual Bicarbonate (HCO3a) 24.6 mEq/L (22-28); Analyzer IN Cardio CS ER; Base Excess (BEa) 0.5 mEq/L (-2.0 to +3.0); CO2 Tension 38.2 mmHg (35.0-45.0); Calcium, Ionized (arterial) 1.08 mmol/L (1.12-1.30); Hematocrit-ABG 46 % (36.0-47.0); Hemoglobin (Hb) 15.7 g/dL (12.0-16.0); O2 Tension (PaO2), arterial 77.6 mmHg (> 80.0); Potassium - ABG Lab 3.53 mmol/L (3.70-5.30); Puncture Site LRA; RapidComm Collect By CP.BR1; pH, Arterial 7.427 (7.35-7.45)
[2023-11-02] MEDS ORDERED: Dextrose 5% in Water 1,000 ML IV PRN (22:51)
[2023-11-02] MEDS ORDERED: Calcium Carbonate 500 MG ChewTAB PO PRN (22:51)
[2023-11-02] MEDS ORDERED: Guaifenesin DM 100-10/5 ML UDCUP PO PRN (22:51)
[2023-11-02] MEDS ORDERED: Dextrose 50% Abboject 50 ML SYRINGE SLOW IVP PRN (22:51)
[2023-11-02] MEDS ORDERED: Glucagon 1 MG/ML KIT IM PRN (22:51)
[2023-11-02] MEDS ORDERED: Acetaminophen 325 MG TAB PO PRN (22:51)
[2023-11-02] MEDS ORDERED: Ondansetron PF 4 MG/2 ML Vial IVP PRN (22:51)
[2023-11-03] MEDS: Oseltamivir 75 MG CAP PO SCH ×2 (01:28→09:04)
[2023-11-03] MEDS: Nicotine 14 MG PATCH TD SCH (01:38)
[2023-11-03] MEDS: HumaLOG 300 UNITS/3 ML VIAL SC PRN (01:38)
[2023-11-03] MEDS: levETIRAcetam 500 MG TAB PO SCH ×2 (01:39→09:02)
[2023-11-03] MEDS: Ipratropium/Albuterol 3 ML NEB NEB SCH (02:50)
[2023-11-03 03:52] LABS: Anion Gap 17 mmol/L (10-20); BUN (Urea Nitrogen) 26 mg/dL (9.8-20.1); Calc. Creatinine Clearance 79 mL/min (70-130); Calcium 8.3 mg/dL (7.8-10.44); Carbon Dioxide 22 mmol/L (22-29); Chloride 101 mmol/L (98-107); Estimated GFR 59; Glucose 244 mg/dL (70-105); Potassium 3.6 mmol/L (3.5-5.1); Sodium 136 mmol/L (136-145)
[2023-11-03] MEDS ORDERED: Mometasone/Formoterol 200/5 60 PUFF INH SCH (06:30)
[2023-11-03 07:16] LABS: Strep pneumo Urine Ag NEGATIVE (NEGATIVE)
[2023-11-03 07:17] LABS: Legionella Urinary Ag Negative (Negative)
[2023-11-03 07:28] LABS: Amphetamine Not Detected (NotDetected); Barbiturates Screen Detected (NotDetected); Benzodiazepine Screen Not Detected (NotDetected); Cocaine Metabolite Screen Not Detected (NotDetected); Methadone Not Detected (NotDetected); Methamphetamine Not Detected (NotDetected); Opiate Screen Detected (NotDetected); Oxycodone Screen Not Detected (NotDetected); Phencyclidine (PCP) Not Detected (NotDetected); THC/Cannabinoid Screen Not Detected (NotDetected); Tricyclic Screen Not Detected (NotDetected)
[2023-11-03] MEDS: Atorvastatin Calcium 40 MG TAB PO SCH (09:00)
[2023-11-03] MEDS ORDERED: PARoxetine CR 12.5 MG ER.TAB PO SCH (09:00)
[2023-11-03] MEDS ORDERED: Enoxaparin 40 MG (0.4 mL) SYRINGE SC SCH (09:00)
[2023-11-03] MEDS: Torsemide 20 MG TAB PO SCH (09:01)
[2023-11-03] MEDS: Ranolazine ER 500 MG TAB PO SCH (09:01)
[2023-11-03] MEDS: Cholecalciferol 1,000 UNITS (25 MCG) TAB PO SCH (09:02)
[2023-11-03] MEDS: methylPREDNISolone Sod Succ 40 MG VIAL IVP SCH (09:04)
[2023-11-03] MEDS: Empagliflozin 25 MG TAB PO SCH (09:04)
[2023-11-03] MEDS: guaiFENesin ER 600 MG TAB PO SCH (09:04)
[2023-11-03] MEDS: Lantus 1000 UNITS/10 ML VIAL SC SCH (09:04)
[2023-11-03] MEDS: Folic Acid 1 MG TAB PO SCH (09:29)
[2023-11-03] MEDS: Isosorbide Mononitrate 60 MG ER.TAB PO SCH (10:34)
[2023-11-03] MEDS: fentaNYL 50 mcg/hour Patch TD SCH (10:34)
[2023-11-03] MEDS: HYDROmorphone 2 MG TAB PO PRN (10:36)
[2023-11-03] MEDS: Fioricet 325/50/40 mg Tablet PO PRN (13:01)
[2023-11-03] MEDS: Budesonide 0.5 MG/2 ML NEB INH SCH (18:42)
[2023-11-03] MEDS: Ipratropium/Albuterol 3 ML NEB NEB PRN (21:25)
[2023-11-03] MEDS: Budesonide 0.5 MG/2 ML NEB ONE (21:35)
[2023-11-04 03:17] LABS: #Monocytes 0.4 10x3/uL (0.0-1.1); #Neutrophils 7.6 10x3/uL (1.5-8.4); %Basophils 0.1 % (0.0-2.0); %Lymphocytes 6.6 % (18.0-47.0); %Monocytes 4.7 % (0.0-10.0); Hemoglobin 13.4 g/dL (12.0-15.5); Mean Corpuscular HGB CONC 32.7 g/dL (32.0-36.0); Mean Corpuscular Hemoglobin 31.1 pg (27.0-33.0); Mean Corpuscular Volume 95.1 fl (81.6-98.3); Mean Platelet Volume 10.8 fl (7.4-10.4); Platelet Count 58 10x3/uL (150-450); RBC Distribution Width 15.7 % (11.5-14.5); Red Blood Cell (RBC) Count 4.31 10x6/uL (3.90-5.03); White Blood Cell (WBC) Count 8.8 10x3/uL (3.5-10.5)
[2023-11-04 03:51] LABS: Anion Gap 16 mmol/L (10-20); BUN (Urea Nitrogen) 32 mg/dL (9.8-20.1); Calc. Creatinine Clearance 62 mL/min (70-130); Calcium 8.7 mg/dL (7.8-10.44); Carbon Dioxide 24 mmol/L (22-29); Chloride 102 mmol/L (98-107); Estimated GFR 44; Glucose 197 mg/dL (70-105); Potassium 3.7 mmol/L (3.5-5.1); Sodium 138 mmol/L (136-145)
[2023-11-04] MEDS: Senokot S 8.6-50 MG TAB PO PRN (05:51)
[2023-11-04 06:04] VITALS: BMI 35.3
[2023-11-04] MEDS: Lactulose 20 GM (30 mL) UDCUP PO SCH (11:56)
[2023-11-04 16:22] VITALS: BP 103/61
[2023-11-04 17:51] VITALS: TEMP 98.4
[2023-11-04] MEDS: PAROXETINE 30 MG PO SCH (21:04)
[2023-11-04] MEDS: Senokot S 8.6-50 MG TAB PO SCH (21:34)
[2023-11-05 03:54] LABS: Anion Gap 15 mmol/L (10-20); BUN (Urea Nitrogen) 28 mg/dL (9.8-20.1); Calc. Creatinine Clearance 82 mL/min (70-130); Calcium 8.6 mg/dL (7.8-10.44); Carbon Dioxide 26 mmol/L (22-29); Chloride 101 mmol/L (98-107); Estimated GFR 62; Glucose 184 mg/dL (70-105); Potassium 3.5 mmol/L (3.5-5.1); Sodium 138 mmol/L (136-145)
[2023-11-05] MEDS: Lactulose 20 GM (30 mL) UDCUP PO SCH (08:13)
[2023-11-06] MEDS ORDERED: predniSONE 20 MG TAB PO SCH (08:00)
== END 2023-11-05 09:57 | disposition home or self-care (01) | DRG 193 ==
LOC: CSHERS 20:16 → CSHIMCU 11-03 00:21
PROVIDERS: ADMIT Student in an Organized Health Care Education/Training Program; ATTEND Internal Medicine
PROC: 5A09357 Assistance with Respiratory Ventilation, Less than 24 Consecutive Hours, Continuous Positive Airway Pressure (ICD-10-PCS; principal; 2023-11-03)
PROC: 5A0945A Assistance with Respiratory Ventilation, 24-96 Consecutive Hours, High Flow/Velocity Cannula (ICD-10-PCS; 2023-11-03)
DX: J10.00 Influenza due to other identified influenza virus with unspecified type of pneumonia (principal); J96.01 Acute respiratory failure with hypoxia; J44.1 Chronic obstructive pulmonary disease with (acute) exacerbation; C34.90 Malignant neoplasm of unspecified part of unspecified bronchus or lung; C79.31 Secondary malignant neoplasm of brain; C79.51 Secondary malignant neoplasm of bone; G93.1 Anoxic brain damage, not elsewhere classified; I50.32 Chronic diastolic (congestive) heart failure; E78.5 Hyperlipidemia, unspecified; I25.10 Atherosclerotic heart disease of native coronary artery without angina pectoris; I11.0 Hypertensive heart disease with heart failure; F31.9 Bipolar disorder, unspecified; G47.33 Obstructive sleep apnea (adult) (pediatric); Z66 Do not resuscitate; K59.03 Drug induced constipation; T40.605A Adverse effect of unspecified narcotics, initial encounter; D69.6 Thrombocytopenia, unspecified; F17.200 Nicotine dependence, unspecified, uncomplicated; E11.9 Type 2 diabetes mellitus without complications; T38.0X5A Adverse effect of glucocorticoids and synthetic analogues, initial encounter; Z79.4 Long term (current) use of insulin; Z79.899 Other long term (current) drug therapy; Z90.49 Acquired absence of other specified parts of digestive tract; Z90.710 Acquired absence of both cervix and uterus
CPT/HCPCS: 36415; 36416; 36600; 71045; 71260; 80048; 80053; 80306; 82805; 83605; 83880; 84145; 85025; 87040; 87449; 87899; 93005; 93010; 94640; 94644; 94660; 94760; 94762; 96374; J1815; J2920; J2930; J7611; J7620; J7626

== ENCOUNTER 2023-12-02 11:19 | Inpatient (IN) | payer BC ==
[2023-12-02] MEDS ORDERED: Ondansetron PF 4 MG/2 ML Vial ONE (11:50)
[2023-12-02 12:44] LABS: Influenza A by NAA Not Detected (NotDetected); Influenza B by NAA Not Detected (NotDetected); SARS-CoV-2 NAA Rapid Test Not Detected (NotDetected)
[2023-12-02 12:50] LABS: #Basophils 0.03 10x3/uL (0.0-0.2); #Eosinphils 0.06 10x3/uL (0.0-0.5); #Monocytes 0.66 10x3/uL (0.0-1.1); #Neutrophils 5.86 10x3/uL (1.5-8.4); %Basophils 0.4 % (0.0-2.0); %Eosinophils 0.7 % (0.0-6.0); %Lymphocytes 17.3 % (18.0-47.0); %Monocytes 8.2 % (0.0-10.0); %Neutrophils 72.9 % (40.0-75.0); Hematocrit 43.9 % (34.9-44.5); Hemoglobin 14.6 g/dL (12.0-15.5); Mean Corpuscular HGB CONC 33.3 g/dL (32.0-36.0); Mean Corpuscular Hemoglobin 33.2 pg (27.0-33.0); Mean Corpuscular Volume 99.8 fl (81.6-98.3); Platelet Count 44 10x3/uL (150-450); RBC Distribution Width 18.7 % (11.5-14.5)
[2023-12-02 13:05] LABS: ALT (SGPT) 15 U/L (8-55); AST (SGOT) 15 U/L (5-34); Albumin 3.1 g/dL (3.4-4.8); Alkaline Phosphatase 95 U/L (40-110); Anion Gap 14 mmol/L (10-20); BUN (Urea Nitrogen) 15 mg/dL (9.8-20.1); Bilirubin, Total 0.8 mg/dL (0.2-1.2); Calc. Creatinine Clearance 0 mL/min (70-130); Carbon Dioxide 30 mmol/L (23-31); Chloride 98 mmol/L (98-107); Estimated GFR 64; Globulin 3.5 g/dL (2.4-3.5); Glucose 207 mg/dL (80-115); Lipase 26 U/L (8-78); Potassium 2.7 mmol/L (3.5-5.1); Protein, Total 6.6 g/dL (5.8-8.1); Sodium 139 mmol/L (136-145)
[2023-12-02] MEDS ORDERED: Potassium Bicarbonate/Cit Ac 25 MEQ TAB ONE (14:21)
[2023-12-02] MEDS ORDERED: Cefepime 2 GM VIAL ONE (14:21)
[2023-12-02 14:40] LABS: Bilirubin Neg (Negative); Blood, Urine Negative (Negative); Clarity Clear (Clear); Glucose, Urine (Dipstick) >=1000 mg/dL (Negative); Ketone, Urine Negative (Negative); Leukocyte Negative (Negative); Nitrite Negative (Negative); Protein, Urine (Dipstick) 15 mg/dl (Neg-Trace); Specific Gravity, Urine 1.015 (1.005-1.030); Urobilinogen Normal mg/dL (Less than 2)
[2023-12-02 15:22] LABS: Bacteria/HPF None Seen HPF (None Seen); CAUTI Indications for Culture Immunosuppressed; RBC/HPF None Seen HPF (0-3); Squamous Epithelial 0-3 HPF (0-3); WBC/HPF None Seen HPF (0-3)
[2023-12-02 15:23] LABS: Urine Culture Reflex Yes Yes
[2023-12-02 15:38] LABS: Lactic Acid 1.2 mmol/L (0.5-2.2)
[2023-12-02] MEDS ORDERED: Ipratropium/Albuterol 3 ML NEB ONE (15:48)
[2023-12-02] MEDS ORDERED: Acetaminophen 325 MG TAB ONE (15:50)
[2023-12-02 16:59] LABS: Troponin I 0.012 ng/mL (< 0.028)
[2023-12-02] MEDS ORDERED: Lactulose 20 GM (30 mL) UDCUP PO PRN (17:34)
[2023-12-02] MEDS ORDERED: Ondansetron ODT 4 MG TAB PO PRN (17:35)
[2023-12-02] MEDS ORDERED: Acetaminophen 325 MG TAB PO PRN (17:35)
[2023-12-02] MEDS ORDERED: Senokot S 8.6-50 MG TAB PO PRN (17:35)
[2023-12-02] MEDS ORDERED: Ondansetron PF 4 MG/2 ML Vial IVP PRN (17:35)
[2023-12-02] MEDS ORDERED: Dextrose 50% Abboject 50 ML SYRINGE SLOW IVP PRN (17:40)
[2023-12-02] MEDS ORDERED: Dextrose 5% in Water 1,000 ML IV PRN (17:40)
[2023-12-02] MEDS ORDERED: Ventolin HFA Inhaler 60 PUFF INHALER INH PRN (17:40)
[2023-12-02] MEDS ORDERED: Glucagon 1 MG/ML KIT IM PRN (17:40)
[2023-12-02] MEDS ORDERED: HumaLOG 300 UNITS/3 ML VIAL SC PRN (17:40)
[2023-12-02] MEDS ORDERED: Electrolyte Replacement Protocol 1 EACH FS SCH (17:45)
[2023-12-02] MEDS: HYDROmorphone 2 MG TAB PO SCH (18:15)
[2023-12-02] MEDS: VANCOMYCIN 1.75 GM/350 ML BAG 1.75 GM in Premix 1 BAG IVPB SCH (18:15)
[2023-12-02 18:25] LABS: Anisocytosis SLIGHT = 6-15 cells (100X) (0-5/hpf); Microcytosis SLIGHT = 6-15 cells (100X) (0-5/hpf); Poikilocytosis SLIGHT = 6-15 cells (100X) (0-5/hpf)
[2023-12-02 18:26] LABS: Giant Platelets SLIGHT HPF (0-5); Platelet Adequacy Comment Appears Decreased; Polychromasia SLIGHT = 2-3 cells (100X) (0-2/hpf); Tear Drops SLIGHT = 2-5 cells (100X) (0-1/hpf)
[2023-12-02] MEDS ORDERED: Prochlorperazine Maleate 5 MG TAB PO PRN (19:54)
[2023-12-02 21:32] VITALS: BMI 34.2
[2023-12-02] MEDS: Mometasone 100 MCG/PUFF (1 INHALER) INH SCH (21:44)
[2023-12-02] MEDS: methylPREDNISolone Sod Succ 40 MG VIAL IVP SCH (22:08)
[2023-12-02] MEDS: Famotidine 20 MG TAB PO SCH (22:08)
[2023-12-02] MEDS: Magnesium 2 GM/50 ML(in water) 2 GM in Premix 1 BAG IVPB SCH (22:09)
[2023-12-02] MEDS: Potassium Chloride 20 MEQ TAB PO SCH (23:34)
[2023-12-02] MEDS: HYDROmorphone 2 MG TAB PO PRN (23:35)
[2023-12-03] MEDS: Cefepime 2 GM in Sodium Chloride 0.9% 100 ML IVPB SCH (02:59)
[2023-12-03] MEDS: Ipratropium/Albuterol 3 ML NEB NEB PRN (05:20)
[2023-12-03] MEDS: Pregabalin 75 MG CAP PO SCH ×2 (06:00→09:05)
[2023-12-03 06:16] LABS: #Basophils 0.03 10x3/uL (0.0-0.2); #Eosinphils 0.01 10x3/uL (0.0-0.5); #Neutrophils 6.18 10x3/uL (1.5-8.4); %Basophils 0.4 % (0.0-2.0); %Eosinophils 0.1 % (0.0-6.0); %Lymphocytes 9.1 % (18.0-47.0); %Monocytes 2.8 % (0.0-10.0); Hematocrit 41.9 % (34.9-44.5); Hemoglobin 13.8 g/dL (12.0-15.5); Mean Corpuscular HGB CONC 32.9 g/dL (32.0-36.0); Mean Corpuscular Hemoglobin 33.1 pg (27.0-33.0); Mean Corpuscular Volume 100.5 fl (81.6-98.3); Mean Platelet Volume 12.7 fl (7.4-10.4); Platelet Count 41 10x3/uL (150-450); RBC Distribution Width 18.4 % (11.5-14.5); Red Blood Cell (RBC) Count 4.17 10x6/uL (3.90-5.03); White Blood Cell (WBC) Count 7.1 10x3/uL (3.5-10.5)
[2023-12-03 06:36] LABS: ALT (SGPT) 14 U/L (8-55); AST (SGOT) 14 U/L (5-34); Alkaline Phosphatase 95 U/L (40-110); Anion Gap 17 mmol/L (10-20); BUN (Urea Nitrogen) 18 mg/dL (9.8-20.1); Bilirubin, Total 0.6 mg/dL (0.2-1.2); Calc. Creatinine Clearance 78 mL/min (70-130); Calcium 9.2 mg/dL (7.8-10.44); Carbon Dioxide 27 mmol/L (23-31); Chloride 100 mmol/L (98-107); Estimated GFR 60; Globulin 3.5 g/dL (2.4-3.5); Glucose 243 mg/dL (80-115); Magnesium 2.8 mg/dL (1.6-2.6); Potassium 4.1 mmol/L (3.5-5.1); Protein, Total 6.5 g/dL (5.8-8.1); Sodium 140 mmol/L (136-145)
[2023-12-03] MEDS: HumaLOG 300 UNITS/3 ML VIAL SC PRN (07:14)
[2023-12-03] MEDS: Mometasone 100 MCG/PUFF (1 INHALER) INH SCH (07:37)
[2023-12-03] MEDS: Isosorbide Mononitrate 60 MG ER.TAB PO SCH (09:04)
[2023-12-03] MEDS: Folic Acid 1 MG TAB PO SCH (09:04)
[2023-12-03] MEDS: Atorvastatin Calcium 40 MG TAB PO SCH (09:04)
[2023-12-03] MEDS: Empagliflozin 25 MG TAB PO SCH (09:05)
[2023-12-03] MEDS ORDERED: Magnevist 469MG/ML 20 ML VIAL ONE (09:48)
[2023-12-03] MEDS: Gabapentin 300 MG CAP PO SCH ×2 (11:39→21:07)
[2023-12-03] MEDS: ALPRAZolam 0.5 MG TAB PO PRN (11:40)
[2023-12-03] MEDS: levETIRAcetam 500 MG TAB PO SCH (21:08)
[2023-12-03] MEDS: OLANZapine 2.5 MG TAB PO SCH (21:08)
[2023-12-03] MEDS: Azithromycin 500 MG in Sodium Chloride 0.9% 250 ML 250 ML IVPB SCH (21:15)
[2023-12-04 04:08] LABS: Anion Gap 13 mmol/L (10-20); BUN (Urea Nitrogen) 18 mg/dL (9.8-20.1); Calc. Creatinine Clearance 95 mL/min (70-130); Calcium 9.2 mg/dL (7.8-10.44); Carbon Dioxide 28 mmol/L (23-31); Chloride 102 mmol/L (98-107); Estimated GFR 77; Glucose 232 mg/dL (80-115); Potassium 3.6 mmol/L (3.5-5.1); Sodium 139 mmol/L (136-145)
[2023-12-04 04:26] LABS: #Basophils 0.03 10x3/uL (0.0-0.2); #Eosinphils 0.07 10x3/uL (0.0-0.5); #Neutrophils 4.98 10x3/uL (1.5-8.4); %Basophils 0.4 % (0.0-2.0); %Eosinophils 0.8 % (0.0-6.0); %Lymphocytes 28.6 % (18.0-47.0); %Monocytes 9.6 % (0.0-10.0); Hematocrit 38.9 % (34.9-44.5); Hemoglobin 12.8 g/dL (12.0-15.5); Mean Corpuscular HGB CONC 32.9 g/dL (32.0-36.0); Mean Corpuscular Hemoglobin 32.9 pg (27.0-33.0); Mean Platelet Volume 11.1 fl (7.4-10.4); Platelet Count 43 10x3/uL (150-450); RBC Distribution Width 18.3 % (11.5-14.5); Red Blood Cell (RBC) Count 3.89 10x6/uL (3.90-5.03); White Blood Cell (WBC) Count 8.3 10x3/uL (3.5-10.5)
[2023-12-04] MEDS: Cholecalciferol 1,000 UNITS (25 MCG) TAB PO SCH (07:59)
[2023-12-04] MEDS: PARoxetine 20 MG TAB PO SCH (08:00)
[2023-12-04] MEDS: methylPREDNISolone Sod Succ 40 MG VIAL IVP SCH (08:06)
[2023-12-04 12:58] VITALS: BP 132/58; TEMP 97.6
[2023-12-04] MEDS: LevoFLOXacin 750 MG TAB PO SCH (13:29)
== END 2023-12-04 14:16 | disposition home or self-care (01) | DRG 193 ==
LOC: CSHERS 11:19 → CSHTELE 17:05
PROVIDERS: ADMIT Family Medicine; ATTEND Internal Medicine
DX: J18.9 Pneumonia, unspecified organism (principal); I50.33 Acute on chronic diastolic (congestive) heart failure; J96.21 Acute and chronic respiratory failure with hypoxia; J44.1 Chronic obstructive pulmonary disease with (acute) exacerbation; C34.90 Malignant neoplasm of unspecified part of unspecified bronchus or lung; C79.51 Secondary malignant neoplasm of bone; C79.31 Secondary malignant neoplasm of brain; C78.7 Secondary malignant neoplasm of liver and intrahepatic bile duct; Z66 Do not resuscitate; R51.9 Headache, unspecified; G89.29 Other chronic pain; I11.0 Hypertensive heart disease with heart failure; E78.5 Hyperlipidemia, unspecified; G47.33 Obstructive sleep apnea (adult) (pediatric); G40.909 Epilepsy, unspecified, not intractable, without status epilepticus; F31.9 Bipolar disorder, unspecified; F17.210 Nicotine dependence, cigarettes, uncomplicated; E11.9 Type 2 diabetes mellitus without complications; I25.10 Atherosclerotic heart disease of native coronary artery without angina pectoris; F39 Unspecified mood [affective] disorder; D69.6 Thrombocytopenia, unspecified; E11.40 Type 2 diabetes mellitus with diabetic neuropathy, unspecified; Z88.8 Allergy status to other drugs, medicaments and biological substances; Z88.5 Allergy status to narcotic agent; Z88.1 Allergy status to other antibiotic agents; Z79.4 Long term (current) use of insulin; Z79.899 Other long term (current) drug therapy; Z98.890 Other specified postprocedural states; Z90.710 Acquired absence of both cervix and uterus; Z90.49 Acquired absence of other specified parts of digestive tract
CPT/HCPCS: 36415; 36416; 70553; 71045; 80048; 80053; 81001; 83605; 83690; 83735; 83880; 84484; 85025; 87040; 87086; 93005; 94640; 94664; 94760; 94762; 96365; 96366; 96367; 96375; A9579; J0456; J0692; J1815; J2405; J2920; J3370; J3475; J3490; J7050; J7620